=== PATIENT | female | born 1965 | race Caucasian/White ===

== ENCOUNTER 2019-02-28 20:46 | Inpatient (IN) | payer SELFPAY ==
[~2019-02-28] VITALS: Ht 172.7 cm; Wt 117.8 kg
[2019-02-28 22:47] LABS: Basophils # (auto) 0.1 uL; Basophils % (auto) 0.6 % (0.0-2.0); Eosinophils # (auto) 0 uL; Eosinophils % (auto) 0.2 % (0.0-7.0); Hematocrit 45.9 % (36.0-46.0); Hemoglobin 15.8 g/dL (12.2-16.2); Lymphocytes # (auto) 2.2 uL; Lymphocytes % (auto) 18.8 % (10.0-50.0); Mean Corpuscular Hemoglobin 32.2 pg (28.0-32.0); Mean Corpuscular Hgb Conc. 34.4 g/dL (32.0-36.0); Mean Corpuscular Volume 93.7 fL (80.0-100.0); Monocytes # (auto) 0.9 uL; Monocytes % (auto) 7.6 % (0.0-12.0); Neutrophils # (auto) 8.4 uL; Neutrophils % (auto) 72.8 % (37.0-80.0); Nucleated Red Blood Cells % 0.1 %; Platelet Count (auto) 316 10^3/uL (140-450); Red Cell Distribution Width 13.5 % (11.8-14.3); White Blood Cell 11.6 10^3/uL (4.4-10.8)
[2019-02-28 23:06] LABS: Albumin 4.2 g/dL (3.4-5.0); Calcium 9.8 mg/dL (8.5-10.1); Potassium 3.5 mmol/L (3.5-5.1)
[2019-02-28 23:07] LABS: Bilirubin, Total 1.4 mg/dL (0.2-1.0); Total Protein 7.5 g/dL (6.4-8.2)
[2019-03-01] MEDS ORDERED: MORPHINE SULF INJ 2 MG/ML SYRINGE 1ML ONE (09:44)
[2019-03-01] MEDS: SOD CHL 0.9%/ KCL 20MEQ 1,000 ML IV SCH ×2 (11:00→23:50)
[2019-03-01] MEDS ORDERED: SODIUM CHLORIDE 0.9% 1,000 ML IV ONE (11:00)
[2019-03-01] MEDS ORDERED: NITROGLYCERIN 0.4 MG SL TAB SL PRN (11:00)
[2019-03-01 11:29] LABS: Urine Bacteria FEW /hpf (None Seen); Urine Blood Negative /uL (Negative); Urine Mucus FEW (None Seen); Urine Specific Gravity 1.015 (1.001-1.035); Urine WBC 12 /hpf (0 - 5)
[2019-03-01 11:57] LABS: INR 1.09 (0.9-1.15); Partial Thromboplastin Time 28.2 sec (23.78-33.04); Prothrombin Time 11.6 sec (9.27-12.13)
[2019-03-01] MEDS: MORPHINE SULF INJ 2 MG/ML SYRINGE 1ML IV PRN ×3 (12:35→21:18)
[2019-03-01] MEDS: metroNIDAZOLE 500MG/100ML 100 ML IV SCH ×3 (13:27→23:45)
[2019-03-01] MEDS: LEVOFLOXACIN 750MG 150 ML IV SCH (15:53)
[2019-03-01] MEDS: ONDANSETRON HCL 4 MG/2 ML VIAL IV PRN ×2 (17:47→21:18)
--- NOTE | 2019-03-01 19:00 | NUR ---
OPENING NOTE PATIENT WAS BROUGHT UP FROM ER. PATIENT IS A&OX4.NO S/S OF DISTRESS OR SOB NOTED. BED IN LOWEST LOCKED POSITION, CALL LIGHT WITHIN REACH.
[2019-03-01 22:00] VITALS: BP 118/64
[2019-03-02] MEDS: ONDANSETRON HCL 4 MG/2 ML VIAL IV PRN ×3 (02:15→10:58)
[2019-03-02] MEDS: MORPHINE SULF INJ 2 MG/ML SYRINGE 1ML IV PRN ×5 (02:16→20:54)
[2019-03-02 05:00] VITALS: BP 113/62
[2019-03-02] MEDS: metroNIDAZOLE 500MG/100ML 100 ML IV SCH ×3 (05:26→17:35)
[2019-03-02] MEDS: SOD CHL 0.9%/ KCL 20MEQ 1,000 ML IV SCH ×2 (06:26→16:49)
--- NOTE | 2019-03-02 07:30 | NUR ---
OPENING NOTE The patient is received alert and oriented times four with no SOB or s/s of distress at this time. The patient is resting in bed in the lowest position with call light within reach, will continue to monitor and POC.
--- NOTE | 2019-03-02 07:42 | NUR ---
CLOSING NOTE ENDORSED CARE TO DAY SHIFT NURSE.NO S/S OF DISTRESS.
--- NOTE | 2019-03-02 08:00 | NUR ---
PRE-OP The patient is transferred to pre-op with no distress noted during transfer.
[2019-03-02] MEDS ORDERED: ceFAZolin 1GM/50ML 50 ML IV ONE (08:08)
[2019-03-02 09:00] VITALS: BP 125/72
[2019-03-02] MEDS ORDERED: NEOSTIGMINE 1 MG/ML INJ (10mg/10ML VIAL) IV ONE (09:00)
[2019-03-02] MEDS ORDERED: GLYCOPYRROLATE 0.2 MG/ML 1ML VIAL IV ONE (09:00)
[2019-03-02] MEDS ORDERED: PROPOFOL 10 MG/ML 20 ML IV ONE (09:02)
[2019-03-02] MEDS ORDERED: fentaNYL CITRATE 100 MCG/2 ML VL ONE ×2 (09:02→09:28)
[2019-03-02] MEDS ORDERED: MIDAZOLAM HCL 1MG/1ML-2 ML VIAL ONE (09:02)
[2019-03-02] MEDS ORDERED: ONDANSETRON HCL 4 MG/2 ML VIAL IV ONE (09:30)
[2019-03-02] MEDS ORDERED: ePHEDrine SULFATE 50 MG/ML AMP IV PRN (09:30)
[2019-03-02] MEDS ORDERED: HYDROmorphone HCL 2 MG/ML VL IV PRN (09:30)
[2019-03-02] MEDS ORDERED: hydrALAZINE HCL 20 MG/ML VL IV PRN (09:30)
[2019-03-02] MEDS: LEVOFLOXACIN 750MG 150 ML IV SCH (10:00)
[2019-03-02] MEDS: HYDROmorphone HCL 2 MG/ML VL IV PRN ×2 (10:25→10:38)
--- NOTE | 2019-03-02 10:50 | NUR ---
PATIENT RECEIVED FROM PACU The patient is received alert and oriented times three with no SOB at this time. The patient has three small incisions to the abdomen with abdominal binder in place s/p lap juventino. The patient is complaining of nausea and the hospitalist is made aware of the patient's persistent nausea. Dr. Nuñez places orders via telephone with read back, will continue to monitor and POC.
[2019-03-02] MEDS: PROMETHAZINE HCL 25 MG/ML 1ML IV PRN ×3 (11:48→20:58)
[2019-03-02 13:00] VITALS: BP 148/90
[2019-03-02 17:00] VITALS: BP_SYST 133; BP_SYST 161; BP_DIAS 79; BP_DIAS 89
[2019-03-02 22:00] VITALS: BP 129/93
[2019-03-03] MEDS: SOD CHL 0.9%/ KCL 20MEQ 1,000 ML IV SCH ×3 (00:06→13:15)
[2019-03-03] MEDS: metroNIDAZOLE 500MG/100ML 100 ML IV SCH ×4 (00:06→18:03)
[2019-03-03] MEDS: PROMETHAZINE HCL 25 MG/ML 1ML IV PRN ×3 (01:20→05:25)
[2019-03-03] MEDS: MORPHINE SULF INJ 2 MG/ML SYRINGE 1ML IV PRN ×2 (01:20→05:25)
[2019-03-03 05:37] VITALS: BP 122/71
[2019-03-03 06:27] LABS: Basophils # (auto) 0 uL; Basophils % (auto) 0.5 % (0.0-2.0); Eosinophils # (auto) 0.2 uL; Eosinophils % (auto) 2.6 % (0.0-7.0); Hematocrit 40.4 % (36.0-46.0); Hemoglobin 13.7 g/dL (12.2-16.2); Lymphocytes # (auto) 1.1 uL; Lymphocytes % (auto) 15.2 % (10.0-50.0); Mean Corpuscular Hemoglobin 32.9 pg (28.0-32.0); Mean Corpuscular Hgb Conc. 33.9 g/dL (32.0-36.0); Mean Corpuscular Volume 97.1 fL (80.0-100.0); Monocytes # (auto) 0.8 uL; Monocytes % (auto) 10.4 % (0.0-12.0); Neutrophils # (auto) 5.3 uL; Neutrophils % (auto) 71.3 % (37.0-80.0); Nucleated Red Blood Cells % 0.1 %; Platelet Count (auto) 196 10^3/uL (140-450); Red Blood Cells 4.16 10^6/uL (4.0-5.20); Red Cell Distribution Width 13.4 % (11.8-14.3); White Blood Cell 7.5 10^3/uL (4.4-10.8)
[2019-03-03 06:38] LABS: Albumin 3.3 g/dL (3.4-5.0); Calcium 8.8 mg/dL (8.5-10.1); Magnesium 2.2 mg/dL (1.6-2.6); Potassium 3.4 mmol/L (3.5-5.1)
[2019-03-03 06:41] LABS: Bilirubin, Total 1.3 mg/dL (0.2-1.0)
[2019-03-03 09:00] VITALS: BP 147/86
[2019-03-03] MEDS: LEVOFLOXACIN 750MG 150 ML IV SCH (10:15)
--- NOTE | 2019-03-03 11:19 | NUR ---
Nutrition Assessment Notes please see attached link for complete assessment Est. Needs ABW [id number] kcal (20-23 kcal/kgBW), 90-99 gms pro (1.0-1.1 gms/kgBW). Will continue to monitor pertinent labs and reassess nutrient need prn Addendum: 03/03/19 at [address] Amended: Links added.
[2019-03-03 12:42] VITALS: BP 126/83
[2019-03-03] MEDS ORDERED: POTASSIUM CHL 20 Meq TABLET PO ONE (13:15)
[2019-03-03] MEDS ORDERED: TEMAZEPAM 15 MG CAP PO PRN (15:30)
[2019-03-03] MEDS: ACETAMINOPHEN 325 MG TAB PO PRN ×3 (15:41→21:40)
[2019-03-03 17:00] VITALS: BP 133/72
--- NOTE | 2019-03-03 20:15 | NUR ---
Opening Shift Note: A&Ox4, resting in bed. Room air, pain level 5/10 in abdomen, and ambulates independently without assistive devices. Bed locked in lowest position, side rails up x2, and call light within reach. IV 22 g in right hand D/C related to tenderness and swelling. New IV 22 g in left wrist inserted x3 attempts. NS with 20 meq of potassium restarted on at 70 ml/hr. Skin is intact except for abdominal incisions. Patient is s/p lap juventino with Dr. Haas on 03/02/19. x3 incisions on abdomen covered with telfa gauze and tegaderm. POC discussed and questions answered. Will continue to round prn.
[2019-03-03 22:07] VITALS: BP 107/66
[2019-03-04] MEDS: metroNIDAZOLE 500MG/100ML 100 ML IV SCH ×2 (00:15→05:41)
[2019-03-04] MEDS: SOD CHL 0.9%/ KCL 20MEQ 1,000 ML IV SCH (03:55)
[2019-03-04 04:49] VITALS: BP 112/59
[2019-03-04 06:36] LABS: Hematocrit 39.6 % (36.0-46.0); Hemoglobin 13.6 g/dL (12.2-16.2)
[2019-03-04 06:55] LABS: Albumin 3.1 g/dL (3.4-5.0); Bilirubin, Direct 0.4 mg/dL (0-0.2); Potassium 3.4 mmol/L (3.5-5.1)
[2019-03-04 06:58] LABS: Total Protein 5.8 g/dL (6.4-8.2)
[2019-03-04 07:49] VITALS: BP 128/67
[2019-03-04] MEDS: PROMETHAZINE HCL 25 MG/ML 1ML IV PRN (09:08)
[2019-03-04 11:42] VITALS: BP 131/69
[2019-03-04] MEDS ORDERED: LEVO500T21 PO (13:11)
[2019-03-04] MEDS ORDERED: METR500T PO (13:11)
[2019-03-04] MEDS ORDERED: POTASSIUM CHL 20 Meq TABLET PO ONE (13:15)
[2019-03-04 13:32] VITALS: BP 128/67
== END 2019-03-04 15:42 | disposition home or self-care (01) | DRG 854 ==
LOC: EDBD 20:46 → ER 20:52 → OVERFLOW 03-01 10:57 → EAST 03-01 19:51
PROVIDERS: ADMIT Nurse Practitioner Acute Care; ATTEND Internal Medicine
PROC: 0FT44ZZ Resection of Gallbladder, Percutaneous Endoscopic Approach (ICD-10-PCS; principal; 2019-03-02 09:00)
DX: A41.9 Sepsis, unspecified organism (principal); K80.00 Calculus of gallbladder with acute cholecystitis without obstruction; E66.01 Morbid (severe) obesity due to excess calories; Z68.39 Body mass index [BMI] 39.0-39.9, adult; E87.6 Hypokalemia; G89.29 Other chronic pain; M54.9 Dorsalgia, unspecified; K59.00 Constipation, unspecified; K66.0 Peritoneal adhesions (postprocedural) (postinfection); Z90.710 Acquired absence of both cervix and uterus; Z90.49 Acquired absence of other specified parts of digestive tract; K82.8 Other specified diseases of gallbladder
CPT/HCPCS: 36415; 71045; 74176; 76705; 78226; 80053; 80076; 81001; 82247; 83735; 84132; 85014; 85018; 85025; 85610; 85730; 86850; 86900; 86901; 93005; 93306; 96374; 96375; A6257; G0378; J0690; J1956; J2250; J2405; J2704; J3490

== ENCOUNTER 2019-03-14 11:33 | Inpatient (IN) | payer SELFPAY ==
[~2019-03-14] VITALS: Ht 170.2 cm; Wt 111.7 kg
[~2019-03-14 11:33] MED LIST: LEVO500T21 PO; METR500T PO
[2019-03-14] MEDS ORDERED: SODIUM CHLORIDE 0.9% 1,000 ML IVB ONE (11:58)
[2019-03-14] MEDS ORDERED: ONDANSETRON HCL 4 MG/2 ML VIAL IV ONE (12:00)
[2019-03-14 12:27] LABS: Basophils # (auto) 0 uL; Basophils % (auto) 0.5 % (0.0-2.0); Eosinophils # (auto) 0 uL; Eosinophils % (auto) 0.4 % (0.0-7.0); Hemoglobin 16.4 g/dL (12.2-16.2); Lymphocytes # (auto) 1.2 uL; Mean Corpuscular Hemoglobin 32.5 pg (28.0-32.0); Mean Corpuscular Hgb Conc. 34.3 g/dL (32.0-36.0); Mean Corpuscular Volume 94.8 fL (80.0-100.0); Monocytes # (auto) 0.6 uL; Monocytes % (auto) 6.9 % (0.0-12.0); Neutrophils % (auto) 78.2 % (37.0-80.0); Platelet Count (auto) 323 10^3/uL (140-450); Red Blood Cells 5.06 10^6/uL (4.0-5.20); Red Cell Distribution Width 13.4 % (11.8-14.3); White Blood Cell 8.9 10^3/uL (4.4-10.8)
[2019-03-14 12:40] LABS: INR 1.07 (0.9-1.15); Partial Thromboplastin Time 25.4 sec (23.78-33.04); Prothrombin Time 11.4 sec (9.27-12.13)
[2019-03-14] MEDS ORDERED: MORPHINE SULF INJ 2 MG/ML SYRINGE 1ML IV ONE (12:45)
[2019-03-14 12:47] LABS: Albumin 3.7 g/dL (3.4-5.0); Calcium 9.3 mg/dL (8.5-10.1); Potassium 4.2 mmol/L (3.5-5.1)
[2019-03-14 12:52] LABS: BUN/Creatinine Ratio 9.9; Bilirubin, Total 3.9 mg/dL (0.2-1.0)
[2019-03-14 12:53] LABS: Magnesium 2.2 mg/dL (1.6-2.6)
[2019-03-14] MEDS ORDERED: NITROGLYCERIN 0.4 MG SL TAB SL PRN (14:15)
[2019-03-14] MEDS ORDERED: MORPHINE SULF INJ 2 MG/ML SYRINGE 1ML IV PRN (14:15)
[2019-03-14 16:36] LABS: Urine Amorphous Crystal FEW /hpf (None Seen); Urine Bacteria NONE SEEN /hpf (None Seen); Urine Blood Negative /uL (Negative); Urine Mucus FEW (None Seen); Urine Specific Gravity 1.018 (1.001-1.035); Urine WBC 4 /hpf (0 - 5)
[2019-03-14] MEDS: MORPHINE SULF INJ 2 MG/ML SYRINGE 1ML IV PRN (16:50)
[2019-03-14 16:57] VITALS: BP 139/90
[2019-03-14] MEDS: NYSTATIN (MOUTH-THROAT) 500,000 UNITS/5 ML SUSP MT SCH ×2 (18:17→22:14)
[2019-03-14] MEDS: ONDANSETRON HCL 4 MG/2 ML VIAL IV PRN (18:18)
[2019-03-14] MEDS: D5W/SOD CHL 0.45%/KCL 20MEQ 1,000 ML IV SCH (18:18)
[2019-03-14] MEDS ORDERED: PNEUMOCOCCAL VACC POLYS 25 MCG/0.5 ML VIAL IM ONE (18:45)
[2019-03-14] MEDS ORDERED: INFLUENZA QUAD 2018-2019 0.5 ML SYRG IM ONE (18:45)
--- NOTE | 2019-03-14 19:00 | NUR ---
OPENING NOTE Received report from day shift RN. Patient is A&O X's 4 with no s/s of distress noted. Educated patient on POC and to use call light when in need of assistance. Patient verbalized understanding. Bed is in lowest/locked position with side rails up X's 2 and call light is within reach. Will continue to monitor for changes and round hourly/PRN.
--- NOTE | 2019-03-14 19:19 | NUR ---
Change of shift given to night shift supervisor RN. No distress noted.
[2019-03-14 22:00] VITALS: BP 142/93
[2019-03-15] MEDS: D5W/SOD CHL 0.45%/KCL 20MEQ 1,000 ML IV SCH ×3 (00:15→21:41)
[2019-03-15] MEDS: MORPHINE SULF INJ 2 MG/ML SYRINGE 1ML IV PRN ×3 (00:25→10:49)
[2019-03-15] MEDS: ONDANSETRON HCL 4 MG/2 ML VIAL IV PRN ×4 (00:25→20:22)
[2019-03-15 05:00] VITALS: BP 132/84
[2019-03-15] MEDS: NYSTATIN (MOUTH-THROAT) 500,000 UNITS/5 ML SUSP MT SCH ×4 (06:16→21:36)
[2019-03-15 06:29] LABS: Basophils # (auto) 0.1 uL; Basophils % (auto) 0.6 % (0.0-2.0); Eosinophils # (auto) 0.2 uL; Eosinophils % (auto) 1.9 % (0.0-7.0); Hemoglobin 14.6 g/dL (12.2-16.2); Lymphocytes # (auto) 1.7 uL; Lymphocytes % (auto) 17.5 % (10.0-50.0); Mean Corpuscular Hemoglobin 32.7 pg (28.0-32.0); Mean Corpuscular Volume 95.9 fL (80.0-100.0); Monocytes # (auto) 0.7 uL; Neutrophils # (auto) 7.2 uL; Platelet Count (auto) 263 10^3/uL (140-450); Red Blood Cells 4.48 10^6/uL (4.0-5.20); Red Cell Distribution Width 13.6 % (11.8-14.3); White Blood Cell 9.9 10^3/uL (4.4-10.8)
[2019-03-15 06:49] LABS: Potassium 3.4 mmol/L (3.5-5.1)
[2019-03-15 06:57] LABS: Albumin 3.5 g/dL (3.4-5.0); BUN/Creatinine Ratio 12.5; Bilirubin, Total 1.7 mg/dL (0.2-1.0); Calcium 8.6 mg/dL (8.5-10.1); Total Protein 6.5 g/dL (6.4-8.2)
--- NOTE | 2019-03-15 07:04 | NUR ---
Opening Shift Note Assumed care of patient, awake and alert. No S/S of distress/SOB or pain. Instructed on POC and to call for assist PRN, will continue to monitor for changes Q1hr and PRN.
[2019-03-15 07:31] VITALS: BP 120/76
[2019-03-15] MEDS: PROMETHAZINE HCL 25 MG/ML 1ML IV PRN ×2 (07:53→15:45)
--- NOTE | 2019-03-15 10:59 | NUR ---
Jose Alberto is an alert and oriented female that resides at home with spouse, Christofer, who is a truckdriver. Pt works from home and has 2 adult sons in the area. Pt functions independently and uses no medical equipment. Pt states she and her are moving to [place] in 4 weeks. Pt has no insurance at this time and states she is over income for [employer]. Pt will be provided [facility] prescription drug discount card and advised to contact billing dept for payment arrangements. Pt verbalized understanding and agreeance with d/c plan. Addendum: 03/15/19 at 1102 by AMMON CONNORS Amended: Links added.
[2019-03-15] MEDS ORDERED: POTASSIUM CHLORIDE 20 MEQ, LIDOCAINE 1% (LOCAL ANESTH.) 2 ML in SODIUM CHL 0.9% 100 ML IV ONE (12:15)
[2019-03-15 12:17] VITALS: BP 112/73
[2019-03-15 16:29] VITALS: BP 126/87
--- NOTE | 2019-03-15 19:24 | NUR ---
Change of shift given to pediatric dentist RN. No distress noted.
--- NOTE | 2019-03-15 19:30 | NUR ---
Opening shift note Patient in bed alert and oriented x 4, verbally coherent, able to make needs known. Patient complained of nausea and abdominal pain 7/10 at this time. Will administer pain med and anti nausea med as ordered. Plan of care discussed, patient verbalized understanding. All needs attended, will continue to monitor.
[2019-03-15] MEDS: MORPHINE SULFATE 4 MG/ML SYR/VIAL IV PRN (20:22)
[2019-03-15 22:00] VITALS: BP 142/70
[2019-03-16 05:32] VITALS: BP 140/83
[2019-03-16] MEDS: NYSTATIN (MOUTH-THROAT) 500,000 UNITS/5 ML SUSP MT SCH ×4 (06:04→22:00)
[2019-03-16] MEDS: MORPHINE SULFATE 4 MG/ML SYR/VIAL IV PRN (06:04)
[2019-03-16] MEDS: PROMETHAZINE HCL 25 MG/ML 1ML IV PRN ×2 (06:05→21:14)
[2019-03-16 06:51] LABS: Basophils # (auto) 0.1 uL; Basophils % (auto) 0.8 % (0.0-2.0); Eosinophils # (auto) 0.2 uL; Eosinophils % (auto) 2.9 % (0.0-7.0); Hematocrit 43.3 % (36.0-46.0); Hemoglobin 14.6 g/dL (12.2-16.2); Lymphocytes # (auto) 1.8 uL; Lymphocytes % (auto) 28.2 % (10.0-50.0); Mean Corpuscular Hemoglobin 32.3 pg (28.0-32.0); Mean Corpuscular Hgb Conc. 33.7 g/dL (32.0-36.0); Mean Corpuscular Volume 95.7 fL (80.0-100.0); Monocytes # (auto) 0.5 uL; Monocytes % (auto) 7.9 % (0.0-12.0); Neutrophils # (auto) 3.8 uL; Neutrophils % (auto) 60.2 % (37.0-80.0); Platelet Count (auto) 237 10^3/uL (140-450); Red Blood Cells 4.53 10^6/uL (4.0-5.20); Red Cell Distribution Width 13.4 % (11.8-14.3); White Blood Cell 6.3 10^3/uL (4.4-10.8)
[2019-03-16 07:07] LABS: Albumin 3.3 g/dL (3.4-5.0); Calcium 8.4 mg/dL (8.5-10.1); Potassium 3.5 mmol/L (3.5-5.1)
[2019-03-16 07:11] LABS: BUN/Creatinine Ratio 8.8; Total Protein 6.3 g/dL (6.4-8.2)
[2019-03-16] MEDS: D5W/SOD CHL 0.45%/KCL 20MEQ 1,000 ML IV SCH ×2 (08:14→16:15)
[2019-03-16 08:30] VITALS: BP 122/77
--- NOTE | 2019-03-16 08:36 | NUR ---
Opening Shift Note Assumed care of patient, awake, alert and oriented x4. No s/s of distress. Patient stated that her abdomen pain was rated at a 5 out of 10 on pain scale. Patient expressed no s/s of n/v. Instructed on POC and to call for assist PRN, call light within reach. will continue to monitor for changes Q1hr and PRN.
--- NOTE | 2019-03-16 13:00 | NUR ---
DIET PATIENT TOLERATING FULL LIQUID DIET. WILL ADVANCE TO SOFT DIET FOR DINNER PER DR. EASTON.
[2019-03-16 13:32] VITALS: BP 152/84
--- NOTE | 2019-03-16 14:00 | NUR ---
IV removal Patient's right wrist beginning to swell. IV DC'd from right wrist with clean sterile technique, catheter fully intact. Pressure dressing applied to site. Patient tolerated well.
[2019-03-16 17:10] VITALS: BP 141/92
[2019-03-16 17:44] VITALS: BP 155/100
--- NOTE | 2019-03-16 18:58 | NUR ---
DIET PATIENT STATES SHE IS NOW NAUSEOUS AND COULD NOT EAT MUCH OF DINNER. PATIENT REQUESTING NAUSEA MEDS. WILL INSERT NEW IV AND GIVEN NAUSEA MEDICATIONS.
--- NOTE | 2019-03-16 19:00 | NUR ---
Opening Shift Note Received shift report from Shanique MCGARRY. Assumed care of patient, awake and alert. No S/S of distress/SOB or pain. Respirations regular and unlabored. Instructed on POC and to call for assist PRN, continuing to monitor for changes Q1hr and PRN. Bed in lowest position, side rails upx2. Call light within reach.
--- NOTE | 2019-03-16 20:00 | NUR ---
IV insertion IV access obtained, via clean sterile technique by inserting 22 gauge catheter at after attempt(s). IV secured properly. No trauma to site. Patient tolerated procedure well.
[2019-03-16] MEDS: ONDANSETRON HCL 4 MG/2 ML VIAL IV PRN (20:03)
--- NOTE | 2019-03-16 20:05 | NUR ---
NAUSEA MANAGEMENT PATIENT COMPLAINING OF INCREASED NAUSEA AND REQUESTING MEDICATION. ZOFRAN IV ADMINISTERED PER PHYSICIAN ORDERS
[2019-03-16 22:00] VITALS: BP 139/81
[2019-03-17] MEDS: MORPHINE SULFATE 4 MG/ML SYR/VIAL IV PRN (00:44)
[2019-03-17] MEDS: ONDANSETRON HCL 4 MG/2 ML VIAL IV PRN (00:44)
[2019-03-17] MEDS: D5W/SOD CHL 0.45%/KCL 20MEQ 1,000 ML IV SCH (02:15)
[2019-03-17 05:00] VITALS: BP 107/67
[2019-03-17] MEDS: NYSTATIN (MOUTH-THROAT) 500,000 UNITS/5 ML SUSP MT SCH (05:23)
[2019-03-17 06:05] LABS: Basophils # (auto) 0.1 uL; Basophils % (auto) 0.9 % (0.0-2.0); Eosinophils # (auto) 0.2 uL; Eosinophils % (auto) 2.3 % (0.0-7.0); Hematocrit 42.7 % (36.0-46.0); Hemoglobin 14.6 g/dL (12.2-16.2); Lymphocytes # (auto) 2.6 uL; Lymphocytes % (auto) 30.1 % (10.0-50.0); Mean Corpuscular Hemoglobin 32.7 pg (28.0-32.0); Mean Corpuscular Hgb Conc. 34.3 g/dL (32.0-36.0); Mean Corpuscular Volume 95.5 fL (80.0-100.0); Monocytes # (auto) 0.7 uL; Monocytes % (auto) 8.3 % (0.0-12.0); Neutrophils % (auto) 58.4 % (37.0-80.0); Platelet Count (auto) 257 10^3/uL (140-450); Red Blood Cells 4.48 10^6/uL (4.0-5.20); Red Cell Distribution Width 13.3 % (11.8-14.3); White Blood Cell 8.6 10^3/uL (4.4-10.8)
[2019-03-17 06:09] LABS: Calcium 9.1 mg/dL (8.5-10.1); Potassium 3.6 mmol/L (3.5-5.1)
[2019-03-17 06:11] LABS: BUN/Creatinine Ratio 8.2
--- NOTE | 2019-03-17 07:06 | NUR ---
SHIFT REPORT GIVEN TO MICHELE MCGARRY
--- NOTE | 2019-03-17 07:15 | NUR ---
Opening Shift Note Assumed care of patient from NOC RN, awake and alert X4. No S/S of distress/SOB or pain at this time. Bed in lowest position, side rails up x2, wheels locked. Instructed on POC and to call for assist PRN, patient verbalized understanding. Will continue to monitor for changes Q1hr and PRN.
[2019-03-17 08:00] VITALS: BP 126/74
--- NOTE | 2019-03-17 10:27 | NUR ---
Discharge instructions given as ordered. Encourage to follow up with PMD as instructed. All questions and concerns addressed. Patient verbalized understanding. Medication reconciliation form completed and copy given to patient. IV removed with catheter intact, pressure dressing applied. Patient taken to vehicle via wheelchair with all personal belongings, accompanied by staff. No distress noted at time of departure.
== END 2019-03-17 10:25 | disposition home or self-care (01) | DRG 438 ==
LOC: EDUNIT# 11:33 → ER 11:33 → EDBD 11:33 → OVERFLOW 14:15 → CENTRAL 15:21
PROVIDERS: ADMIT Nurse Practitioner Acute Care; ATTEND Internal Medicine
DX: K85.80 Other acute pancreatitis without necrosis or infection (principal); N17.0 Acute kidney failure with tubular necrosis; R65.10 Systemic inflammatory response syndrome (SIRS) of non-infectious origin without acute organ dysfunction; B37.9 Candidiasis, unspecified; E66.9 Obesity, unspecified; E87.6 Hypokalemia; F41.9 Anxiety disorder, unspecified; I12.9 Hypertensive chronic kidney disease with stage 1 through stage 4 chronic kidney disease, or unspecified chronic kidney disease; K21.9 Gastro-esophageal reflux disease without esophagitis; K76.0 Fatty (change of) liver, not elsewhere classified; M51.37 Other intervertebral disc degeneration, lumbosacral region; N18.9 Chronic kidney disease, unspecified; F17.210 Nicotine dependence, cigarettes, uncomplicated; Z82.49 Family history of ischemic heart disease and other diseases of the circulatory system; Z90.49 Acquired absence of other specified parts of digestive tract; Z90.710 Acquired absence of both cervix and uterus; Z68.38 Body mass index [BMI] 38.0-38.9, adult; Z23 Encounter for immunization
CPT/HCPCS: 36415; 71045; 74176; 76705; 80048; 80053; 80061; 81001; 82150; 83690; 83735; 84478; 85025; 85610; 85730; 87081; 94761; 96361; 96374; 96375; G0378; J2001; J2405